=== PATIENT | female | born 1965 | race Caucasian/White ===

== ENCOUNTER → 2017-03-17 14:50 | Outpatient (CLI) | payer SELFPAY | END | disposition home or self-care (01) | LOC: D.RAD 11:00 | DX: K59.00 Constipation, unspecified (principal) ==

== ENCOUNTER → 2017-10-14 19:54 | Outpatient (CLI) | payer OTHER | END | disposition home or self-care (01) | LOC: D.MAMMO 15:00 | DX: N64.4 Mastodynia (principal) ==

== ENCOUNTER 2018-06-26 06:42 | Emergency (ER) | payer OTHER ==
[~2018-06-26] VITALS: Ht 167.6 cm; Wt 104.5 kg
[2018-06-26 06:46] VITALS: Ht 167.6 cm; Wt 104.5 kg
[2018-06-26 07:19] LABS: BASOPHILS 0.5 % (0-2); EOSINOPHILS 0.9 % (0-7); HEMATOCRIT 33.5 % (36.0-48.0); HEMOGLOBIN 10.3 g/dL (12-16); IMMATURE GRANULOCYTES 0.4 % (0-5); LYMPHOCYTES 12.5 % (15-50); MCH 24.3 pg (26.0-34.0); MCHC 30.7 g/dL (31.0-37.0); MEAN PLATELET VOLUME 10.5 fL (7.4-10.4); MONOCYTES 7.6 % (2-11); NEUTROPHILS 78.1 % (40-80); PLATELET COUNT 401 10x3/uL (130-400); RBC 4.24 10x6/uL (4.00-5.40); RDW 16.1 % (11.5-14.5); WBC 10.9 10x3/uL (4.8-10.8)
[2018-06-26 07:30] LABS: APPEARANCE CLEAR (CLEAR); BILIRUBIN NEGATIVE (NEGATIVE); COLOR YELLOW (YELLOW); GLUCOSE NEGATIVE (NEGATIVE); KETONE NEGATIVE (NEGATIVE); NITRITE NEGATIVE (NEGATIVE); PROTEIN NEGATIVE (NEGATIVE); UROBILINOGEN NORMAL (NORMAL)
[2018-06-26 07:31] LABS: WHITE CELLS - URINE 0-5 /hpf (0-5)
[2018-06-26 07:32] LABS: ALBUMIN 3.5 g/dL (3.4-5.0); ANION GAP 15.5 mmol/L (8-16); BACTERIA MODERATE /hpf (NONE SEEN); BILIRUBIN - TOTAL 0.43 mg/dL (0.2-1.3); CALCIUM 8.8 mg/dL (8.5-10.1); CARBON DIOXIDE 24.4 mmol/L (21.0-32.0); CREATININE - SERUM 0.9 mg/dL (0.6-1.3); EPITHELIAL CELLS 0-5 /hpf (0-5); POTASSIUM - SERUM 3.9 mmol/L (3.5-5.1); RED CELLS - URINE 0-5 /hpf (0-5)
[2018-06-26] MEDS ORDERED: HYDROCODON-ACE1 EAC7 PO (10:19)
[2018-06-26 10:32] VITALS: BP 108/66
== END 2018-06-26 10:33 | disposition home or self-care (01) ==
LOC: D.ER 06:42
PROVIDERS: Family Medicine
DX: R10.9 Unspecified abdominal pain (principal); K80.80 Other cholelithiasis without obstruction

== ENCOUNTER 2020-11-13 15:00 | Outpatient (CLI) | payer OTHER ==
[2018-06-26 06:46] VITALS: BMI 37.2
[~2020-11-13 15:00] MED LIST: HYDROCODON-ACE1 EAC7 PO
== END 2020-11-13 23:59 | disposition home or self-care (01) ==
LOC: D.MAMMO 15:00
PROVIDERS: ATTEND Nurse Practitioner
DX: N64.4 Mastodynia (principal)